=== PATIENT | male | born 1985 | race Caucasian/White ===

== ENCOUNTER 2017-05-20 16:25 | Emergency (ER) | payer OTHER ==
[~2017-05-20] VITALS: Ht 170.2 cm; Wt 68.0 kg
[2017-05-20 16:42] VITALS: BP 144/76
[2017-05-20 18:14] VITALS: BP 144/76
== END 2017-05-20 18:13 | disposition home or self-care (01) ==
LOC: MED 16:25
DX: N50.9 Disorder of male genital organs, unspecified (principal)
CPT/HCPCS: 99281